=== PATIENT | male | born 1990 | race Asian ===

== ENCOUNTER 2018-10-15 15:41 | Emergency (ER) | payer BC ==
[~2018-10-15] VITALS: Ht 175.3 cm; Wt 60.3 kg
[2018-10-15 15:54] VITALS: Ht 175.3 cm; Wt 60.3 kg
[2018-10-15 19:26] VITALS: BP 118/84
== END 2018-10-15 19:26 | disposition home or self-care (01) ==
LOC: ED 15:41
DX: S61.211A Laceration without foreign body of left index finger without damage to nail, initial encounter (principal); S61.210A Laceration without foreign body of right index finger without damage to nail, initial encounter; W26.8XXA Contact with other sharp object(s), not elsewhere classified, initial encounter; Y93.89 Activity, other specified; Y92.89 Other specified places as the place of occurrence of the external cause; Y99.8 Other external cause status
CPT/HCPCS: 90715; J2001